=== PATIENT | female | born 1975 | race Caucasian/White ===

== ENCOUNTER 2017-04-14 10:07 | Outpatient (CLI) | payer OTHER ==
[~2017-04-14 10:07] MED LIST: Iopamidol 370 76% 100 ML VIAL ONE
--- NOTE | 2017-04-14 14:24 | CT ---
CT ABDOMEN AND PELVIS WITH IV AND ORAL CONTRAST: Date: 04/14/17 HISTORY: Right lower quadrant pain. FINDINGS: The lung bases are clear. Spleen is upper limits of normal at 12.3 cm. Small cysts are present within the cortex of each kidney. The appendix is not inflamed. Intrauterine contraceptive device is in place. Nabothian cysts arise fr om the uterine cervix. Follicles arise from the ovaries. IMPRESSION: 1. No CT evidence of appendicitis or other acute abnormalities. 2. IUD is in good CT position. POS: [facility]
== END 2017-04-14 10:08 | disposition home or self-care (01) ==
LOC: SCSCT 10:07
PROVIDERS: ATTEND Family Medicine
DX: R10.31 Right lower quadrant pain (principal); Z97.5 Presence of (intrauterine) contraceptive device
CPT/HCPCS: 74177